=== PATIENT | female | born 1965 | race Caucasian/White ===

== ENCOUNTER → 2020-09-18 10:40 | Outpatient (BNVA) | payer OTHER, SELFPAY | PROVIDERS: PCP Pediatrics; Visit Provider Internal Medicine Cardiovascular Disease | DX: I47.1 Supraventricular tachycardia (principal) | CPT/HCPCS: 99202 ==

== ENCOUNTER → 2020-11-10 13:43 | Outpatient (REF) | payer OTHER, SELFPAY ==
--- NOTE | 2020-11-10 13:48 | CA_ITS ---
Transthoracic Echocardiogram Patient (Last, First, Middle): Bailey Oconnor, Gender: Female Date of : 1965 Age: 55 Procedure Date: 11/10/2020 Procedure Type: Transthoracic Echocardiogram Location: OP Height: 162.56 cm Weight: 61.24 kg BSA: 1.66 m2 Heart Rate: bpm BP: 110 / 75 mmHg Sports Official: MAYI/MANUEL Referring MD: Samm Orantes MD Transportation Clerk: Thom Mai MD Symptoms: I47.1 - Supraventricular tachycardia Study Quality: Fair ECG Rhythm: Sinus Conclusions: - Essentially normal study Findings Left Ventricle Normal left ventricular size, thickness, and systolic function. The visually estimated ejection fraction is between 60-65%. Spectral Doppler is indicative of a normal filling pattern. Right Ventricle Normal right ventricular cavity size and systolic function. Atria Both atria are normal in size. There is no evidence of interatrial shunt. Aortic Valve Normal aortic valve structure and function. There is no aortic valve stenosis. There is no aortic valve regurgitation. Mitral Valve Normal mitral valve structure and function. There is trace mitral valve regurgitation. There is no mitral valve stenosis. Pulmonic Valve The pulmonic valve is likely normal. Tricuspid Valve Normal tricuspid valve structure. There is trace tricuspid valve regurgitation. The right ventricular systolic pressure is normal. The right ventricular systolic pressure is 17 mmHg. Normal right atrial pressure. There is no evidence of pulmonary hypertension. Great Vessels All visible segments of the aorta are normal in size. The pulmonary artery was not well visualized. Venous The inferior vena cava is normal in size and collapses greater than 50% with inspiration. Pericardium/Pleural There is no evidence of pericardial effusion. Prior Study Comparison No prior study available for comparison. Measurements 2D Linear Measurements IVSd: 0.74 0.6-0.9/0.6-1.0 cm LVIDd: 3.75 3.9-5.3/4.2-5.9 cm LVIDd Index: 2.26 2.4-3.2/2.2-3.1 cm/m2 LVIDs: 2.27 2.0-3.6 cm LVPWd: 0.87 0.7-1.1 cm Ao Root: 3.10 2.1-3.5 cm LA Diam: 2.60 2.7-3.8/3.0-4.0 cm LAIDs Index: 1.57 1.5-2.3 cm/m2 LV Mass: 105.22 67-162/88-224 g LV Mass Index: 63.38 43-95/49-115 g/m2 LVOT Diam: 2.00 3.0+(-)1.3 cm Mitral Valve MV Pk E: 0.97 MV PK A: 0.65 MV Decel Time: 274.00 E/A: 1.50 E'Lateral: 13.30 E'Medial: 10.70 E/E' Med: 9.10 E/E' Lat: 7.30 PHT: 80.00 MVA PHT: 2.75 Decel [place]: 3.56 Aortic Valve AoV Pk Owen: 1.35 AoV Mn Owen: 0.93 AoV VTI: 0.30 AoV Pk Grad: 7.00 Aov Mn Grad: 4.00 JAELYN Cont.VTI: 2.32 LVOT LVOT Pk Owen: 1.03 LVOT Mn Owen: 0.67 LVOT VTI: 0.22 LVOT Pk Grad: 4.00 LVOT Mn Grad: 2.00 LVOT Diam: 2.00 LVOT Area: 3.14 Diastolic Function MV Pk E: 0.97 MV Pk A: 0.65 E/A: 1.50 E'Medial: 10.70 E/E' Med: 9.10 E' Laterial: 13.30 E/E' Lat: 7.30 Tricuspid Valve TR Pk Owen: 1.84 TR Pk Grad: 14.00 RA Press: 3.00 RVSP: 17.00 Great Vessels Aorta Ao Root-2D: 3.10 2.0-3.7 cm Ao Asc: 3.10 2.1-3.4 cm Ao Arch: 2.10 Updated in Other Vendor System with Status of Final Thom Mai MD electronically signed on 11/11/2020 11:51:23 AM with status of Final
== END ==
LOC: HO.CARD 13:43
PROVIDERS: PCP Internal Medicine; Visit Provider Internal Medicine Cardiovascular Disease
DX: I47.1 Supraventricular tachycardia (principal)
CPT/HCPCS: 93306

== ENCOUNTER → 2021-01-08 14:24 | Outpatient (BNVA) | payer OTHER, SELFPAY | PROVIDERS: PCP Internal Medicine; Visit Provider Internal Medicine Cardiovascular Disease | DX: I47.1 Supraventricular tachycardia (principal); R07.9 Chest pain, unspecified; Z88.2 Allergy status to sulfonamides; Z91.040 Latex allergy status | CPT/HCPCS: 99212 ==

== ENCOUNTER → 2021-01-12 07:48 | Outpatient (REF) | payer OTHER, SELFPAY ==
--- NOTE | 2021-01-12 07:50 | CA_ITS ---
Acquisition Time: 2021-01-12 07:59:41 Total Exercise Time: 00:10:17 Test Indications: Chest Pain Medications: TOPROL XL Protocol: JANESSA Max HR: 142 BPM 85% of Pred: 167 BPM Max BP: 130/080 mmHG Max Work Load: 12.2 METS Exercise stress test with exercise 10 min 17 sec of Janessa protocol, without anginal symptoms, without arrythmia, with normotensive response to exercise, without EKG changes meeting criteria for ischemia. Test reviewed with Dr Mai. Referred By: Samm Orantes Overread By: CLOTILDE HERNANDEZ
== END ==
LOC: HO.CARD 07:48
PROVIDERS: PCP Internal Medicine; Visit Provider Internal Medicine Cardiovascular Disease
DX: R07.9 Chest pain, unspecified (principal)
CPT/HCPCS: 93017

== ENCOUNTER → 2021-05-04 11:33 | Outpatient (BNVA) | payer OTHER, SELFPAY | PROVIDERS: PCP Internal Medicine; Referring Provider Internal Medicine; Visit Provider Internal Medicine Cardiovascular Disease | DX: R00.2 Palpitations (principal) | CPT/HCPCS: 93005 ==

== ENCOUNTER → 2021-06-02 15:03 | Outpatient (REF) | payer OTHER, SELFPAY ==
--- NOTE | 2021-06-02 15:06 | HM_ITS ---
Total monitoring time 13 days and 21 hours. Underlying rhythm is sinus. Minimum heart rate 54/Min. Maximum 156/Min. Average 71/Min. No atrial fibrillation or flutter or AV blocks or pauses. Rare supraventricular ectopy with minimal burden. 5 supraventricular episodes, longest 7 beats. Rare ventricular ectopy with minimal burden. No patient events. MTDD
== END ==
LOC: HO.CARD 15:03
PROVIDERS: Visit Provider Internal Medicine Cardiovascular Disease
DX: R00.2 Palpitations (principal)
CPT/HCPCS: 93246

== ENCOUNTER → 2021-09-07 09:02 | Outpatient (BNVA) | payer OTHER, SELFPAY | PROVIDERS: PCP Internal Medicine; Referring Provider Internal Medicine; Visit Provider Internal Medicine Cardiovascular Disease | DX: R00.2 Palpitations (principal); R07.9 Chest pain, unspecified; R55 Syncope and collapse | CPT/HCPCS: 93005 ==

== ENCOUNTER → 2021-09-23 07:32 | Outpatient (REF) | payer OTHER, SELFPAY ==
--- NOTE | 2021-09-23 07:36 | HM_ITS ---
Conclusion: 1. Patient was monitored for total period of 2 days and 23 hours 2. Baseline rhythm is normal sinus rhythm with average heart of 75 beats per minute 3. No significant pauses or bradycardia noted 4. Total of 970 PVCs accounting for 0.3% of total beats accounting for occasional PVCs, 3 different morphologies 5. Total of 3745 PACs accounting for 1.17% total burden account for frequent PACs 6. No patient reported events MTDD
== END ==
LOC: HO.CARD 07:32
PROVIDERS: PCP Internal Medicine; Visit Provider Internal Medicine Cardiovascular Disease
DX: R00.2 Palpitations (principal); I47.1 Supraventricular tachycardia; R55 Syncope and collapse
CPT/HCPCS: 93242

== ENCOUNTER → 2022-06-07 08:58 | Outpatient (BNVA) | payer OTHER, SELFPAY | PROVIDERS: PCP Internal Medicine; Referring Provider Internal Medicine; Visit Provider Internal Medicine Cardiovascular Disease | DX: I47.1 Supraventricular tachycardia (principal) | CPT/HCPCS: 93005; 99212 ==